=== PATIENT | female | born 1960 | race African-American/Black ===

== ENCOUNTER 2016-10-18 08:43 | Day surgery (SDC) | payer OTHER ==
--- NOTE | 2016-10-18 08:49 | PDOC ---
History of Present Illness - General Chief Complaint: Pain, Acute Stated Complaint: ABDOMINAL PAIN Time Seen by Provider: 10/18/16 08:49 History Source: Patient Exam Limitations: No Limitations - History of Present Illness Initial Comments: 56 yo F history HTN, obesity, lap band presents with upper abdominal pain for past few weeks. She states that every time she tries to eat, she vomits. She c/ o sensation of indigestion at present. She was evaluated by Dr. Hernandez a week ago, who instructed her to go to ED if her symptoms worsen. She states that the band has been deflated recently, but she is still having symptoms. Past History - Past Medical History Allergies/Adverse Reactions: Allergies Allergy/AdvReac Type Severity Reaction Status Date / Time No Known Allergies Allergy Verified 10/18/16 08:44 Home Medications: Ambulatory Orders Amlodipine Besylate 10 mg PO DAILY 10/18/16 Famotidine [Pepcid] 0 mg PO DAILY 10/18/16 Gabapentin 300 mg PO BID 10/18/16 Tramadol HCl 2 tab PO TID 10/18/16 Anemia: No Asthma: No Cancer: No Cardiac Disorders: No CVA: No COPD: No CHF: No Dementia: No Diabetes: No GI Disorders: No Disorders: No HTN: Yes (DX 03/2011) Hypercholesterolemia: No Liver Disease: No Seizures: No Thyroid Disease: No - Surgical History Abdominal Surgery: No Appendectomy: No Cardiac Surgery: No Cholecystectomy: No Lung Surgery: No Neurologic Surgery: No Orthopedic Surgery: No - Psycho/Social/Smoking Cessation Hx Smoking History: Current every day smoker Have you smoked in the past 12 months: Yes Number of Cigarettes Smoked Daily: 20 Hx Alcohol Use: Yes (RARELY) Drug/Substance Use Hx: No Substance Use Type: Alcohol Hx Substance Use Treatment: No Review of Systems - Review of Systems Able to Perform ROS?: Yes Comments:: GENERAL/CONSTITUTIONAL: No fever or chills. No weakness. HEAD, EYES, EARS, NOSE AND THROAT: No change in vision. No ear pain or discharge. No sore throat. CARDIOVASCULAR: No chest pain or shortness of breath. RESPIRATORY: No cough, wheezing, or hemoptysis. GASTROINTESTINAL: +Nausea and vomiting. No diarrhea or constipation. GENITOURINARY: No dysuria, frequency, or change in urination. MUSCULOSKELETAL: No joint or muscle swelling or pain. No neck or back pain. SKIN: No rash NEUROLOGIC: No headache, vertigo, loss of consciousness, or change in strength/ sensation. ENDOCRINE: No increased thirst. No abnormal weight change. HEMATOLOGIC/LYMPHATIC: No anemia, easy bleeding, or history of blood clots. ALLERGIC/IMMUNOLOGIC: No hives or skin allergy. *Physical Exam - Physical Exam Comments: GENERAL: Awake, alert, and fully oriented, in no acute distress HEAD: No signs of trauma EYES: PERRLA, EOMI, sclera anicteric, conjunctiva clear ENT: Auricles normal inspection, hearing grossly normal, nares patent, oropharynx clear without exudates. Moist mucosa NECK: Normal ROM, supple, no lymphadenopathy, JVD, or masses LUNGS: Breath sounds equal, clear to auscultation bilaterally. No wheezes, and no crackles HEART: Regular rate and rhythm, normal S1 and S2, no murmurs, rubs or gallops ABDOMEN: Soft, nontender, normoactive bowel sounds. No guarding, no rebound. No masses. Multiple well-healed scars to the upper abdomen. Palpable port to the R upper abdomen. EXTREMITIES: Normal range of motion, no edema. No clubbing or cyanosis. No cords, erythema, or tenderness NEUROLOGICAL: Cranial nerves II through XII grossly intact. Normal speech, normal gait SKIN: Warm, Dry, normal turgor, no rashes or lesions noted. ED Treatment Course - LABORATORY CBC & Chemistry Diagram: 10/18/16 09:10 10/18/16 09:10 Medical Decision Making - Medical Decision Making 10/18/16 10:[address] Hernandez's office, left message for callback. 10/18/16 11:39 D/w Dr. Hernandez. He will add patient to the OR schedule today for slipped lap band causing intractable vomiting. *DC/Admit/Observation/Transfer Diagnosis at time of Disposition: Admission for adjustment of gastric lap band Intractable vomiting Qualifiers: Vomiting type: unspecified Nausea presence: with nausea Qualified Code(s): R11.2 - Nausea with vomiting, unspecified - Discharge Dispostion Condition at time of disposition: Stable Admit: Yes
[2016-10-18 08:54] VITALS: BMI 50.3
[2016-10-18] MEDS ORDERED: SODIUM CHLORIDE 1,000 ML IV STA (09:07)
[2016-10-18] MEDS ORDERED: FAMOTIDINE 20 MG/50 ML IVPB 50 ML IVPB ONE ×2 (09:07→09:18)
[2016-10-18 09:11] LABS: PH,URINE 5.5 (4.5-8); URINE APPEARANCE Clear; URINE BILIRUBIN Negative (NEGATIVE); URINE BLOOD Negative (NEGATIVE); URINE GLUCOSE (UA) Negative (NEGATIVE); URINE KETONE Negative (NEGATIVE); URINE LEUK ESTERASE Negative (NEGATIVE); URINE NITRITE Negative (NEGATIVE); URINE PROTEIN Negative (NEGATIVE); URINE UROBILINOGEN 0.2 (0.2-1.0)
[2016-10-18 09:13] LABS: URINE COLOR YELLOW
[2016-10-18] MEDS ORDERED: ONDANSETRON 4 MG/2 ML VIAL ONE ×3 (09:18→15:10)
[2016-10-18 09:28] LABS: BASOPHIL 2.8 % (0-2.0); EOSINOPHIL 2.4 % (0-4.5); MCH 26.6 pg (25.7-33.7); MCHC 32.2 g/dl (32.0-36.0); MEAN CELL VOLUME 82.6 fl (80-96); NEUTROPHILS 55.5 % (42.8-82.8); PLATELET COUNT 250 K/MM3 (134-434); RDW 13.9 % (11.6-15.6); WHITE BLOOD COUNT 7.9 K/mm3 (4.0-10.8)
[2016-10-18] MEDS: ONDANSETRON 4 MG/2 ML VIAL IVPUSH ONE ×2 (09:43→15:10)
[2016-10-18 09:47] LABS: ALBUMIN 3.8 g/dl (3.5-5.0); ALK PHOS 55 U/L (32-92); ANION GAP 7 (8-16); BILIRUBIN,TOTAL 0.4 mg/dl (0.2-1.0); CALCIUM 9.6 mg/dl (8.4-10.2); CO2 25 mmol/L (22-28); CREATININE 0.9 mg/dl (0.6-1.3); GLUCOSE,RANDOM 110 mg/dl (74-106); SGOT/AST 17 U/L (10-42); SGPT/ALT 14 U/L (10-40); TOT PROT 7.2 g/dl (6.4-8.3)
[2016-10-18 12:14] LABS: INR 0.98 (0.82-1.09)
[2016-10-18] MEDS ORDERED: BUPIVACAINE HCL/PF 2.5 MG/ML - 30 ML VIAL IJ ONE (13:01)
[2016-10-18] MEDS ORDERED: MIDAZOLAM HCL 2 MG/2 ML SINGLE DOSE VIAL ONE (13:05)
[2016-10-18] MEDS ORDERED: PROPOFOL 20 ML ONE ×2 (13:05)
[2016-10-18] MEDS ORDERED: ROCURONIUM BROMIDE 50 MG/5 ML VIAL ONE (13:05)
[2016-10-18] MEDS ORDERED: LIDOCAINE HCL 2% JELLY (5 ML/TUBE) ONE (13:06)
[2016-10-18] MEDS ORDERED: DEXAMETHASONE SOD PHOSPHATE 4 MG/1 ML VIAL ONE (13:06)
[2016-10-18] MEDS ORDERED: KETOROLAC TROMETHAMINE 30 MG/1 ML VIAL ONE (13:06)
[2016-10-18] MEDS ORDERED: ceFAZolin SODIUM 1 GM VIAL ONE (13:06)
[2016-10-18] MEDS ORDERED: LIDOCAINE HCL/PF 2% SDV 5ML VIAL ONE (13:06)
[2016-10-18] MEDS ORDERED: ePHEDrine SULFATE 50 MG/1 ML AMPULE ONE (13:34)
[2016-10-18] MEDS ORDERED: BACITRACIN 15 GM TUBE TOPICAL OINTMENT ONE (13:52)
[2016-10-18] MEDS ORDERED: NEOSTIGMINE METHYLSULFATE 0.5 MG/ML - 10 ML MDV ONE (14:16)
[2016-10-18] MEDS ORDERED: GLYCOPYRROLATE 0.2 MG/1 ML VIAL ONE (14:16)
[2016-10-18] MEDS ORDERED: ONDANSETRON 4 MG/2 ML VIAL IVPB PRN (14:48)
[2016-10-18] MEDS ORDERED: ENOXAPARIN NA (PORCINE) 40 MG/0.4 ML DISP.SYRIN SQ ONE ×3 (14:48→16:50)
[2016-10-18] MEDS ORDERED: MEPERIDINE HCL CARPU-JECT 50 MG/1 ML DISP.SYRIN IM PRN (14:48)
[2016-10-18] MEDS ORDERED: oxyCODONE HCL 5 MG TABLET PO PRN ×2 (14:48→14:50)
[2016-10-18] MEDS ORDERED: LACTATED RINGERS SOLUTION 1,000 ML IV SCH (15:00)
[2016-10-18] MEDS ORDERED: SODIUM CHLORIDE 1,000 ML IV SCH ×2 (15:00)
--- NOTE | 2016-10-18 15:03 | OP ---
Operative Note - Note: Operative Date: 10/18/16 Pre-Operative Diagnosis: Intractable Vomiting. Ge Reflux Disease. Epigastric Pain. Malfunctioning Gastric Band Operation: Removal of Gastric Band plus sub-Q Port. Laparoscopic Lysis of Adhesions. Excision of fibrous capsule around the stomach. Diagnostic Laparoscopy Findings: Scar tissue between omentum and anterior abdominal wall lysed Fibrous capsule over the band and around the stomach wall was excised Post-Operative Diagnosis: Same as Pre-op (Vomiting; GERD, Epigastric Pain; Malfunctioning Gastric Band;Abdominal adhesions;) Surgeon: Cesar Hernandez Stylist Apprentice: Robe Rangel Anesthesia: General Specimens Removed: Gastric Band plus sub-q port Estimated Blood Loss (mls): 30
[2016-10-18 15:34] LABS: ANION GAP 7 (8-16); CALCIUM 9.1 mg/dl (8.4-10.2); CO2 25 mmol/L (22-28); GLUCOSE,RANDOM 137 mg/dl (74-106)
[2016-10-18 15:41] LABS: MCH 27.2 pg (25.7-33.7); MCHC 32.9 g/dl (32.0-36.0); MEAN CELL VOLUME 82.6 fl (80-96); MEAN PLT VOLUME 9.9 fl (7.5-11.1); PLATELET COUNT 228 K/MM3 (134-434); RDW 13.9 % (11.6-15.6); WHITE BLOOD COUNT 12.3 K/mm3 (4.0-10.8)
[2016-10-18 16:52] VITALS: TEMP 97.8
--- NOTE | 2016-10-18 17:14 | OP ---
DATE OF OPERATION: 10/18/2016 PREOPERATIVE DIAGNOSIS: 1. Intractable vomiting. 2. Gastroesophageal reflux disease. 3. Epigastric pain. 4. Malfunctioning implantable device secondary to gastric band. 5. Hypertension. POSTOPERATIVE DIAGNOSIS: 1. Intractable vomiting. 2. Gastroesophageal reflux disease. 3. Epigastric pain. 4. Malfunctioning implantable device secondary to gastric band. 5. Hypertension. 6. Abdominal lesion. 7. Fibrous capsule around the stomach. PROCEDURE PERFORMED: 1. Removal of gastric band plus subcutaneous port component. 2. Laparoscopic lysis of adhesions. 3. Excision of fibrous capsule around the stomach. 4. Diagnostic laparoscopy. OPERATING SURGEON: Cesar Hernandez M.D. NEWS COMMENTATOR: Robe Rangel M.D. ANESTHESIA: General. OPERATIVE PROCEDURE: The patient was taken to the operating room, placed on the OR table in a supine position. All precautions were taken initially including padding for the back and the feet, and Venodyne boots were placed on both lower extremities. At that point, the abdomen was prepped and draped in the usual manner. A Veress needle was placed in the left upper quadrant, and pneumoperitoneum was established. A number 12 bladeless trocar was placed in the left upper quadrant through the trocar laparoscopic camera was placed. Under direct vision, a number 12 bladeless trocar was then placed to the left costal margin. With the camera placed to that trocar, a number 5 trocar was placed in the midline above the umbilicus. With the of the trocars being used as working ports, the adhesions that were noted between the omentum and the anterior abdominal wall just lateral were lysed with electrocautery. Once these were completely cleaned, right upper quadrant was completely cleaned of adhesions, and then a number 15 bladeless trocar was placed in right upper quadrant. A Rush liver retractor was placed in the epigastric to retract left lobe of liver. Patient was then placed in 20 degree reverse Trendelenburg position, and the psychological assistant surgeon retracted the band tubing laterally toward the patient's left side. This allowed the operating surgeon to dissect scar tissue off the bed, which with a fibrous capsule, and this was performed until the entire fibrous capsule on the lesser curvature side of the band was then removed. The band tubing was then grasped by the operating surgeon and retracted laterally to the patient's right side. At this same time, the psychological assistant surgeon retracted the stomach inferiorly and the fibrous capsule over the greater curvature side of the band was removed until the entire band was in full view. The band was then opened up and cut in half, and both pieces were sent from around the stomach and handed off the field to pathology as specimen. Attention was now directed to fibrous capsule around the stomach. With the psychological assistant and operating surgeon lifting it up on both sides, the operating surgeon was able to place a scissors underneath and dissect the fibrous capsule off the stomach wall, and then cut it and split it from inferior to superior. When this was completed, the entire anterior wall of the stomach was free of all scar tissue. At that point, irrigation was placed in the area and suctioned until dry, and under direct vision all trocars were removed and pneumoperitoneum was released. The right upper quadrant number 15 trocar site was then opened and dissection continued with electrocautery down to the fibrous capsule around the subcutaneous port. The fibrous capsule was dissected off the subcutaneous port, and the port was then sent off the field, sent to pathology as a specimen. All trocar sites then received 0.25% Marcaine, was closed with 4-0 Biosyn in subcuticular fashion. The right upper quadrant port site was first closed with 3-0 Vicryl with subcutaneous tissue followed by 4-0 Biosyn in subcuticular fashion. Dressings were applied, patient awoken from anesthesia and transferred out of the operating room into the recovery room in stable condition. OPERATING SURGEON: Cesar Hernandez M.D. NEWS COMMENTATOR: Robe Rangel M.D. EXPECTED BLOOD LOSS: 30 mL. DISPOSITION: Patient transferred to recovery room in stable condition. Sadiq MARTINEZ/[id number]
[2016-10-18 18:16] VITALS: BP 138/82; PULSE 74
[2016-10-18] MEDS ORDERED: FAMOTIDINE 20 MG/50 ML IVPB 50 ML IVPB SCH ×2 (22:00)
--- NOTE | 2016-10-19 08:07 | EKG ---
Test Reason : Blood Pressure : / mmHG Vent. Rate : 054 BPM Atrial Rate : 054 BPM P-R Int : 174 ms QRS Dur : 086 ms QT Int : 464 ms P-R-T Axes : 062 065 052 degrees QTc Int : 440 ms POOR DATA QUALITY, INTERPRETATION MAY BE ADVERSELY AFFECTED SINUS BRADYCARDIA POSSIBLE LEFT ATRIAL ENLARGEMENT NO PREVIOUS ECGS AVAILABLE Confirmed by SLIME MCBRIDE MD ([id number]) on 10/19/2016 8:06:48 AM Referred By: SEBAS GOMES Confirmed By:SLIME MCBRIDE MD
--- NOTE | 2016-10-26 15:30 | PATH ---
Surgical Pathology Report Patient Name: JUNG SALOMON [facility]. Rec. #: [id number] /Age/Gender: 1960 (Age: 56) / F Account: [id number] Location: [facility] AMBULATORY Taken: 10/18/2016 Received: 10/18/2016 Reported: 10/26/2016 Physicians: Cesar Hernandez M.D. Specimen(s) Received GASTRIC BAND AND PORT EXPLANT Clinical History Vomiting, epigastric pain, GERD, malfunctioning gastric band Final Diagnosis GASTRIC BAND AND PORT, EXPLANT: GASTRIC BAND AND PORT, DESCRIBED (GROSS EXAMINATION ONLY). Electronically Signed Tsering Uribe M.D. Gross Description Received fresh labeled "gastric band and port explant," are 2 portions of a gastric band measuring 11.0 x 1.8 x 0.9 cm and 1.8 x 1.8 x 0.9 cm. The smaller portion displays an attached 40 cm in length portion of tubing extending from one aspect. Also received within the same container is a 3 cm in diameter x 1.5 cm in depth white, circular device, consistent with a rm cath. The port displays an 18 cm in length portion of tubing extending from one aspect. No soft tissue is present. No sections are submitted, gross only. 10/19/2016 [facility]10/19/2016
== END 2016-10-18 17:35 | disposition home or self-care (01) ==
LOC: FER 08:43 → FASU 11:52
PROVIDERS: ATTEND Surgery
PROC: 0DN64ZZ Release Stomach, Percutaneous Endoscopic Approach (ICD-10-PCS; 2016-10-18)
PROC: 0DP64CZ Removal of Extraluminal Device from Stomach, Percutaneous Endoscopic Approach (ICD-10-PCS; principal; 2016-10-18 13:41)
DX: T85.518A Breakdown (mechanical) of other gastrointestinal prosthetic devices, implants and grafts, initial encounter (principal); K95.09 Other complications of gastric band procedure; K31.89 Other diseases of stomach and duodenum; R11.11 Vomiting without nausea; K21.9 Gastro-esophageal reflux disease without esophagitis; R10.13 Epigastric pain; I10 Essential (primary) hypertension; K66.0 Peritoneal adhesions (postprocedural) (postinfection); Y83.8 Other surgical procedures as the cause of abnormal reaction of the patient, or of later complication, without mention of misadventure at the time of the procedure; Y92.9 Unspecified place or not applicable
CPT/HCPCS: 36415; 71010-TC; 74000-TC; 80048; 80053; 81003; 83690; 85025; 85027; 85610; 86850; 86900; 86901; 88300-TC; 93005; 94760; 99283-25